=== PATIENT | female | born 1970 | race Caucasian/White ===

== ENCOUNTER 2019-05-24 15:55 | Inpatient (IN) ==
[2019-05-24] MEDS ORDERED: Vancomycin 1,000 MG VIAL IVPB ONE (17:00)
[2019-05-24 17:33] LABS: Basophils % 0.3 %; Eosinophils # 0.2 K/mcL (0.0-0.6); Eosinophils % 2.4 %; Hematocrit 40.2 % (35.3-44.9); Hemoglobin 13.1 g/dL (11.5-15.4); Immature Granulocytes % 0.6 % (0-4); Lymphocytes # 2.3 K/mcL (0.6-4.6); Lymphocytes % 32.2 %; Mean Corpuscular HGB Conc 32.6 g/dL (31.6-35.5); Mean Corpuscular Hemoglobin 29.4 pg (28.0-33.3); Mean Corpuscular Volume 90.3 fL (83.0-100.0); Mean Platelet Volume 9.1 fL (9.4-12.4); Monocytes # 0.6 K/mcL (0.0-1.3); Monocytes % 8.5 %; Platelet Count 200 K/mcL (140-400); Red Blood Count 4.45 M/mcL (3.82-4.97); Red Cell Distribution Width 13.6 % (11.5-14.5); White Blood Count 7.1 K/mcL (4.3-11.1)
[2019-05-24 17:52] LABS: BUN/Creatinine Ratio 17 (6-26); Blood Urea Nitrogen 13 mg/dL (6-20); C-Reactive Protein 9 mg/L (Less than 10); Calcium 9.9 mg/dL (8.6-10.3); Carbon Dioxide 31 mEq/L (23-29); Chloride 103 mEq/L (98-107); Glucose 104 mg/dL (70-105); Osmolality,Calculated 286 (280-300); Sodium 138 mEq/L (136-145); eGFR For African Americans > 60 (> 60); eGFR For Non-African Americans > 60 (> 60)
[2019-05-24] MEDS ORDERED: Ondansetron 4 MG/2 ML VIAL IVP PRN (18:33)
[2019-05-24] MEDS: Melatonin 3 MG TABLET PO SCH (20:22)
[2019-05-24] MEDS: traZODone 50 MG TABLET PO SCH (20:22)
[2019-05-24] MEDS ORDERED: lamoTRIgine 100 MG TABLET PO SCH (21:00)
[2019-05-24] MEDS: Gabapentin 300 MG CAPSULE PO SCH (21:32)
[2019-05-24] MEDS: Acetaminophen 325 MG TABLET PO PRN (21:37)
[2019-05-25 03:26] LABS: INR 1.1; Prothrombin Time 12.5 Seconds (9.4-12.1)
[2019-05-25 03:40] LABS: BUN/Creatinine Ratio 13 (6-26); Blood Urea Nitrogen 11 mg/dL (6-20); Calcium 9.6 mg/dL (8.6-10.3); Carbon Dioxide 34 mEq/L (23-29); Chloride 105 mEq/L (98-107); Glucose 127 mg/dL (70-105); Osmolality,Calculated 297 (280-300); Potassium 4.4 mEq/L (3.5-5.1); Sodium 143 mEq/L (136-145); eGFR For African Americans > 60 (> 60); eGFR For Non-African Americans > 60 (> 60)
[2019-05-25] MEDS ORDERED: Ketorolac 15 MG/ML VIAL IVP ONE (03:43)
[2019-05-25] MEDS: *HR* Heparin 5,000 UNIT/ML VIAL SQ SCH ×2 (05:42→16:56)
[2019-05-25] MEDS: lamoTRIgine 100 MG TABLET PO SCH (09:01)
[2019-05-25] MEDS: Gabapentin 300 MG CAPSULE PO SCH ×3 (09:01→20:14)
[2019-05-25] MEDS: Acetaminophen 325 MG TABLET PO PRN (15:45)
[2019-05-25] MEDS: hydrOXYzine pamoate 25 MG CAPSULE PO SCH ×2 (16:54→20:13)
[2019-05-25] MEDS: tiZANidine 4 MG TABLET PO SCH ×2 (16:55→20:13)
[2019-05-25] MEDS: Melatonin 3 MG TABLET PO SCH (20:13)
[2019-05-25] MEDS: Loratadine 10 MG TABLET PO SCH (20:13)
[2019-05-25] MEDS: traZODone 50 MG TABLET PO SCH (20:13)
[2019-05-26] MEDS: Acetaminophen 325 MG TABLET PO PRN ×2 (01:06→15:04)
[2019-05-26 02:19] LABS: BUN/Creatinine Ratio 17 (6-26); Blood Urea Nitrogen 15 mg/dL (6-20); Calcium 9.8 mg/dL (8.6-10.3); Carbon Dioxide 31 mEq/L (23-29); Chloride 103 mEq/L (98-107); Glucose 145 mg/dL (70-105); Osmolality,Calculated 293 (280-300); Potassium 3.6 mEq/L (3.5-5.1); Sodium 140 mEq/L (136-145); eGFR For African Americans > 60 (> 60); eGFR For Non-African Americans > 60 (> 60)
[2019-05-26] MEDS: *HR* Heparin 5,000 UNIT/ML VIAL SQ SCH ×2 (05:33→17:48)
[2019-05-26] MEDS: Loratadine 10 MG TABLET PO SCH ×2 (07:41→20:18)
[2019-05-26] MEDS: tiZANidine 4 MG TABLET PO SCH ×3 (07:41→20:18)
[2019-05-26] MEDS: lamoTRIgine 100 MG TABLET PO SCH (07:41)
[2019-05-26] MEDS: Gabapentin 300 MG CAPSULE PO SCH ×3 (07:41→20:17)
[2019-05-26] MEDS: hydrOXYzine pamoate 25 MG CAPSULE PO SCH ×3 (07:42→20:18)
[2019-05-26] MEDS: Ibuprofen 400 MG TABLET PO PRN ×2 (07:59→20:24)
[2019-05-26] MEDS: *HR* HYDROcodone/Acet 5/325 mg TABLET PO PRN (16:11)
[2019-05-26] MEDS: Melatonin 3 MG TABLET PO SCH (20:17)
[2019-05-26] MEDS: traZODone 50 MG TABLET PO SCH (20:17)
[2019-05-27] MEDS: *HR* HYDROcodone/Acet 5/325 mg TABLET PO PRN ×4 (00:12→20:51)
[2019-05-27 05:11] LABS: BUN/Creatinine Ratio 18 (6-26); Blood Urea Nitrogen 14 mg/dL (6-20); Calcium 9.3 mg/dL (8.6-10.3); Carbon Dioxide 30 mEq/L (23-29); Chloride 105 mEq/L (98-107); Glucose 122 mg/dL (70-105); Osmolality,Calculated 294 (280-300); Sodium 141 mEq/L (136-145); eGFR For African Americans > 60 (> 60); eGFR For Non-African Americans > 60 (> 60)
[2019-05-27] MEDS: *HR* Heparin 5,000 UNIT/ML VIAL SQ SCH ×2 (05:54→17:19)
[2019-05-27] MEDS: Loratadine 10 MG TABLET PO SCH (08:34)
[2019-05-27] MEDS: Gabapentin 300 MG CAPSULE PO SCH ×3 (08:36→20:41)
[2019-05-27] MEDS: lamoTRIgine 100 MG TABLET PO SCH (08:36)
[2019-05-27] MEDS: tiZANidine 4 MG TABLET PO SCH ×3 (08:37→20:42)
[2019-05-27] MEDS: hydrOXYzine pamoate 25 MG CAPSULE PO SCH ×3 (08:37→20:41)
[2019-05-27] MEDS ORDERED: Acetaminophen IV 1,000 MG/100 ML INFUS..BTL ONE (13:28)
[2019-05-27] MEDS ORDERED: Famotidine 20 MG/2 ML VIAL ONE (13:28)
[2019-05-27] MEDS ORDERED: Ondansetron 4 MG/2 ML VIAL IVP ONE ×2 (13:32→15:54)
[2019-05-27] MEDS ORDERED: *HR* Promethazine 25 MG/ML VIAL IVP PRN ×2 (13:32→15:54)
[2019-05-27] MEDS ORDERED: *HR* OxyCODONE Immed Rel 5 MG TABLET PO PRN ×2 (13:32→15:54)
[2019-05-27] MEDS ORDERED: Ondansetron 4 MG/2 ML VIAL ONE (14:54)
[2019-05-27] MEDS ORDERED: Dexamethasone 4 MG/ML VIAL ONE (14:54)
[2019-05-27] MEDS ORDERED: Acetaminophen 325 MG TABLET PO PRN (15:54)
[2019-05-27] MEDS ORDERED: Ondansetron 4 MG/2 ML VIAL IVP PRN (15:54)
[2019-05-27] MEDS: Ibuprofen 400 MG TABLET PO PRN (16:18)
[2019-05-27] MEDS: traZODone 50 MG TABLET PO SCH (20:38)
[2019-05-27] MEDS: Melatonin 3 MG TABLET PO SCH (20:38)
[2019-05-27] MEDS ORDERED: Gabapentin 300 MG CAPSULE PO SCH (21:00)
[2019-05-27] MEDS ORDERED: tiZANidine 4 MG TABLET PO SCH (21:00)
[2019-05-27] MEDS ORDERED: hydrOXYzine pamoate 25 MG CAPSULE PO SCH (21:00)
[2019-05-28] MEDS: *HR* HYDROcodone/Acet 5/325 mg TABLET PO PRN ×5 (00:23→18:05)
[2019-05-28] MEDS: Ibuprofen 400 MG TABLET PO PRN ×2 (01:28→20:28)
[2019-05-28] MEDS: *HR* Heparin 5,000 UNIT/ML VIAL SQ SCH ×2 (04:30→17:10)
[2019-05-28 04:47] LABS: BUN/Creatinine Ratio 20 (6-26); Blood Urea Nitrogen 13 mg/dL (6-20); Calcium 9.2 mg/dL (8.6-10.3); Carbon Dioxide 25 mEq/L (23-29); Chloride 103 mEq/L (98-107); Glucose 110 mg/dL (70-105); Osmolality,Calculated 281 (280-300); Potassium 3.9 mEq/L (3.5-5.1); Sodium 135 mEq/L (136-145); eGFR For African Americans > 60 (> 60); eGFR For Non-African Americans > 60 (> 60)
[2019-05-28] MEDS ORDERED: *HR* OxyCODONE Immed Rel 5 MG TABLET PO PRN (05:32)
[2019-05-28] MEDS: hydrOXYzine pamoate 25 MG CAPSULE PO SCH ×3 (07:40→20:26)
[2019-05-28] MEDS: lamoTRIgine 100 MG TABLET PO SCH (07:41)
[2019-05-28] MEDS: Gabapentin 300 MG CAPSULE PO SCH ×3 (07:42→20:28)
[2019-05-28] MEDS: Loratadine 10 MG TABLET PO SCH (07:42)
[2019-05-28] MEDS: tiZANidine 4 MG TABLET PO SCH ×3 (07:44→20:28)
[2019-05-28] MEDS: Melatonin 3 MG TABLET PO SCH (20:24)
[2019-05-28] MEDS: traZODone 50 MG TABLET PO SCH (20:28)
[2019-05-29] MEDS: *HR* HYDROcodone/Acet 5/325 mg TABLET PO PRN ×2 (04:50→13:40)
[2019-05-29] MEDS: *HR* Heparin 5,000 UNIT/ML VIAL SQ SCH (05:47)
[2019-05-29 06:43] VITALS: BP 114/75
[2019-05-29] MEDS: tiZANidine 4 MG TABLET PO SCH (08:02)
[2019-05-29] MEDS: Gabapentin 300 MG CAPSULE PO SCH (08:03)
[2019-05-29] MEDS: Loratadine 10 MG TABLET PO SCH (08:04)
[2019-05-29] MEDS: lamoTRIgine 100 MG TABLET PO SCH (08:04)
[2019-05-29] MEDS: hydrOXYzine pamoate 25 MG CAPSULE PO SCH ×2 (08:04→13:40)
[2019-05-29] MEDS ORDERED: Aminoglycoside Consult 1 EACH MC ONE (15:09)
== END 2019-05-29 15:10 | disposition home or self-care (01) | DRG 320 ==
LOC: EMEROOARM 15:55 → 3NENU 15:55 → SUATTDRO 18:40 → 3NENU 19:30
PROVIDERS: ADMIT Internal Medicine; ATTEND Internal Medicine